=== PATIENT | male | born 1965 | race Caucasian/White ===

== ENCOUNTER → 2021-03-24 | Day surgery (SDC) | payer OTHER ==
[~2021-03-24] VITALS: Ht 177.8 cm; Wt 100.7 kg
[~2021-03-24] MED LIST: AMOXICILLIN500 MG PO
[2021-03-24 10:20] LABS: BASOPHIL 1.4 % (0-2); EOSINOPHIL 6.8 % (0-5); HCT 47.2 % (42.0-52.0); LYMPHOCYTE 32.5 % (15-48); MCH 30.2 pg (25.0-31.0); MCHC 33.9 g/dL (32.0-36.0); MCV 89.2 fL (78.0-100.0); MONOCYTE 8.6 % (0-12); MPV 8.7 fL (6.0-9.5); NEUTROPHIL 50.3 % (41-80); NRBC 0; PLT 380 K/uL (150-400); RBC 5.29 M/uL (4.70-6.00); RDW 12.7 % (11.5-14.0); WBC 8.5 K/uL (4.0-10.5)
[2021-03-24 11:14] LABS: INR 0.98 (0.9-1.2); PROTHROMBIN TIME 12.4 SECONDS (11.8-13.4); PTT 34.6 SECONDS (24.4-34.7)
== END | disposition home or self-care (01) ==
LOC: FAS 09:38
PROVIDERS: Oral & Maxillofacial Surgery
DX: K02.9 Dental caries, unspecified (principal); K04.7 Periapical abscess without sinus; I10 Essential (primary) hypertension
CPT/HCPCS: D7140; D7210; 36415; 71045; 85025; 85610; 85730; 93005; J1100; J1170; J2250; J2405; J2704; J2710; J3010; J3490; J7120